=== PATIENT | male | born 1985 | race Asian ===

== ENCOUNTER 2016-08-09 11:18 | Emergency (ER) | payer OTHER ==
[~2016-08-09] VITALS: Ht 165.1 cm; Wt 69.4 kg
[2016-08-09 11:29] VITALS: TEMP 37; Ht 165.1 cm; Wt 69.4 kg
--- NOTE | 2016-08-09 12:02 | DIAGNOSTIC IMAGING REPORT ---
LEFT WRIST 4 VIEWS HISTORY: Fall with left wrist pain. COMPARISON: None. FINDINGS: There is a comminuted and impacted distal radius fracture with intra-articular extension. There is also a displaced fracture at the tip of the ulnar styloid. Small ossific density dorsal to the carpal bones consistent with a small triquetral bone fracture. Diffuse soft tissue swelling. No radiopaque foreign bodies. IMPRESSION: Left wrist fractures as described above. Electronically signed by: Parvez Loya M.D. 08/09/2016 12:00 PM Dictated Date/Time: 08/09/2016 11:58 AM
--- NOTE | 2016-08-09 13:12 | EMERGENCY ROOM VISIT NOTE ---
ED Visit Note First contact with patient: 11:37 CHIEF COMPLAINT: Left wrist injury HISTORY OF PRESENT ILLNESS: This 31-year-old male presents the ER with chief complaint of left wrist pain after falling. The patient states that he fell down the steps just prior to arrival and thinks he tried to catch himself with his left hand and wrist. He is unsure exactly how the injury occurred. He does not know if he twisted the wrist or if he landed on it. The patient denies any other injuries. The patient denies a names and tingling in his fingers. The patient is right-hand dominant. The patient denies any prior injury to the left wrist. He currently rates the pain at a 2 out of 10. REVIEW OF SYSTEMS: 6 system review was performed and was negative unless stated otherwise in history of present illness. PMH: The patient is healthy; there is no significant medical or surgical history. SOCIAL HISTORY: Patient lives alone. The patient denies any tobacco or alcohol use. PHYSICAL EXAM: Vital Signs: Were reviewed Reviewed Nurse's notes. GENERAL: 31- year-old male appears in no acute distress. MENTAL STATUS: Alert and oriented 3. LEFT WRIST: There is swelling and tenderness of the distal forearm and wrist. There is no obvious deformity of the distal forearm. The skin is intact. Flexion and extension of the fingers is intact. The fingers are warm and well perfused. EMERGENCY DEPARTMENT COURSE: The patient was evaluated. The patient was offered pain medication but declined. X-ray of the left wrist was ordered and interpreted by the radiologist and myself. DIAGNOSTICS:LEFT WRIST 4 VIEWS HISTORY: Fall with left wrist pain. COMPARISON: None. FINDINGS: There is a comminuted and impacted distal radius fracture with intra-articular extension. There is also a displaced fracture at the tip of the ulnar styloid. Small ossific density dorsal to the carpal bones consistent with a small triquetral bone fracture. Diffuse soft tissue swelling. No radiopaque foreign bodies. IMPRESSION: Left wrist fractures as described above. Electronically signed by: Parvez Loya M.D. 08/09/2016 12:00 PM Dictated Date/Time: 08/09/2016 11:58 AM The patient was informed of the findings. [facility] stated the patient will need an appointment with Dr. Diane this week. The catalytic case operator got him an appointment for 10:20 AM on August 11. The patient was placed in an Ortho-Glass splint and sling. Post- splinting the patient was neurovascularly intact. The patient was discharged home in stable condition. DIAGNOSIS: Comminuted intra-articular fracture of the left distal radius DISCHARGE INSTRUCTIONS AND TREATMENT: Keep arm in splint and sling until evaluated by orthopedics. Appointment with Dr. Diane on at 10:20 AM at [facility]. Tylenol or ibuprofen as needed for pain. Current/Historical Medications No Active Prescriptions or Reported Meds Allergies Coded Allergies: No Known Allergies (Unverified , 08/09/16) Vital Signs Date Time Temp Pulse Resp B/P Pulse Ox O2 Delivery O2 Flow Rate FiO2 08/09/16 11:29 37.0 90 17 151/79 97 Room Air Departure Information Prescriptions No Active Prescriptions or Reported Meds Referrals No Doctor, Assigned (PCP) Patient Instructions [facility]
[2016-08-09 13:29] VITALS: BP 116/70; PULSE 88; O2SAT 99
== END 2016-08-09 13:33 | disposition home or self-care (01) ==
LOC: C.EDB 11:20 → C.EDD 13:33
DX: S52.512A Displaced fracture of left radial styloid process, initial encounter for closed fracture (principal); W10.9XXA Fall (on) (from) unspecified stairs and steps, initial encounter